=== PATIENT | female | born 1970 | race Caucasian/White ===

== ENCOUNTER 2019-12-14 04:25 | Emergency (ER) | payer MEDICAID, OTHER ==
[~2019-12-14] VITALS: Ht 152.4 cm; Wt 99.8 kg
[~2019-12-14 04:25] MED LIST: ALBU0.099 IH
[2019-12-14 04:33] VITALS: BP 118/95
--- NOTE | 2019-12-14 04:39 | NUR ---
PT AMBULATED TO BED 11 WITH STEADY GAIT. PT PROVIDED UA.
--- NOTE | 2019-12-14 04:40 | NUR ---
ERMD AT BEDSIDE.
[2019-12-14] MEDS ORDERED: IBUPROFEN 600 MG TAB PO ONE (04:45)
[2019-12-14] MEDS ORDERED: HYDROcodone/APAP 10/325 MG 1 TAB TAB PO ONE (04:45)
--- NOTE | 2019-12-14 04:48 | NUR ---
49 Y/O FEMALE PRESENTED TO ED C/O RIGHT FLANK PAIN X 1 WEEK , SHARP , INTERMITTENT PAIN 10/10. PT DENIES TRAUMA AND STATES IT WAS A SUDDEN PAIN. PT DENIES N/V/D/FEVER/BODY ACHES/SOB/CHEST PAIN/DYSURIA. PT STATES SHE HAS BEEN TAKING IBUPROFEN W/ NO RELIEF. PT STATES THIS PAIN IS WORSE THAN WHEN SHE HAD GALLSTONES. PT C/O OF PAIN /TENDERNESS OF RIGHT FLANK UPON PALPATION. PT A/O X4 , RR EVEN AND UNLABORED. PT RESTING IN BED , LOCKED AND IN LOWEST POSITION, HOB ELEVATED, SIDE RAIL X1. PMH: ASTHMA, GALLSTONES NKA
--- NOTE | 2019-12-14 05:10 | NUR ---
LABS AND URINE SAMPLE COLLECTED AND WALKED TO LAB.
--- NOTE | 2019-12-14 05:13 | NUR ---
PT TAKEN TO CT VIA W/C
--- NOTE | 2019-12-14 05:21 | NUR ---
PT RETURN FROM CT
--- NOTE | 2019-12-14 05:28 | NUR ---
PT RATES PAIN 5/10 AFTER MEDICATION ADMINISTRATION. PT STATES "THE MEDICATION HELPED A LOT WITH THE PAIN."
[2019-12-14 06:00] LABS: BASOPHILS % (AUTO) 0.6 % (0.0-2.0); EOSINOPHILS # (AUTO) 0.2 K/uL (0-0.4); EOSINOPHILS % (AUTO) 3.4 % (0.0-4.0); HEMATOCRIT 37.2 % (36-48); HEMOGLOBIN 11.9 g/dL (12.0-16.0); LYMPHOCYTES # (AUTO) 1.6 K/uL (2.5-16.5); LYMPHOCYTES % (AUTO) 28.1 % (20.5-51.1); MEAN CORPUSCULAR HEMOGLOBIN 28 pg (27-31); MEAN CORPUSCULAR HGB CONC 32 g/dL (33-37); MEAN CORPUSCULAR VOLUME 86.7 fL (80-94); MONOCYTES # (AUTO) 0.4 K/uL (0.8-1.0); MONOCYTES % (AUTO) 7.3 % (1.7-9.3); NEUTROPHILS # (AUTO) 3.4 K/uL (1.8-7.7); NEUTROPHILS % (AUTO) 60.6 % (42.2-75.2); PLATELET COUNT (AUTO) 284 K/uL (140-450); WHITE BLOOD COUNT (AUTO) 5.7 K/uL (4.8-10.8)
[2019-12-14 06:16] LABS: APPEARANCE,URINE CLEAR (CLEAR); BILIRUBIN,URINE 1+ (NEGATIVE); BLOOD, URINE 1+ (NEGATIVE); LEUKOCYTE ESTERASE ,URINE NEGATIVE (NEGATIVE); NITRITE, URINE NEGATIVE (NEGATIVE); UGLUCOSE NEGATIVE (NEGATIVE)
--- NOTE | 2019-12-14 06:17 | NUR ---
PT SLEEPING IN BED, LOCKED AND IN LOWEST POSITION, VISIBLE RISE AND FALL OF CHEST, AROUSABLE TO VERBAL STIMULATION, HOB ELEVATED , SIDE RAIL X1. RR EVEN AND UNLABORED, VSS.
[2019-12-14 06:20] LABS: ANION GAP 11.8 (8-16); CARBON DIOXIDE 28.9 mmol/L (21-32); CREATININE 0.9 mg/dL (0.6-1.3); POTASSIUM 3.7 mmol/L (3.5-5.1); TOTAL BILIRUBIN 0.3 mg/dL (0.0-1.0)
[2019-12-14 06:21] LABS: COLOR,URINE YELLOW (YELLOW)
[2019-12-14 06:22] LABS: RBC,URINE NONE SEEN /HPF (0-5); WBC,URINE NONE SEEN /HPF (0-5)
--- NOTE | 2019-12-14 06:50 | NUR ---
DR FELICIANO AT BEDSIDE FOR RE EVALUATION.
[2019-12-14 07:00] VITALS: BP 121/87
--- NOTE | 2019-12-14 07:00 | NUR ---
Patient discharged with v/s stable. Written and verbal after care instructions given and explained. Patient alert, oriented and verbalized understanding of instructions. Ambulatory with steady gait. All questions addressed prior to discharge. ID band removed. Patient advised to follow up with PMD. Rx of IBUPROFEN AND NORCO given. Patient educated on indication of medication including possible reaction and side effects. Opportunity to ask questions provided and answered. Pt stated she will be receiving a ride from her friend.
== END 2019-12-14 07:00 | disposition home or self-care (01) ==
LOC: MED 04:25
DX: R10.9 Unspecified abdominal pain (principal); J45.909 Unspecified asthma, uncomplicated; Z79.899 Other long term (current) drug therapy
CPT/HCPCS: 36415; 80053; 81001; 85025; 99284

== ENCOUNTER 2020-02-25 00:30 | Emergency (ER) | payer MEDICAID ==
[~2020-02-25] VITALS: Ht 157.5 cm; Wt 91.2 kg
[2020-02-25 00:37] VITALS: BP 126/79
[2020-02-25] MEDS ORDERED: KETOROLAC 60 MG/2 ML VIAL IM ONE (01:15)
[2020-02-25 01:31] VITALS: BP 126/79
== END 2020-02-25 01:31 | disposition home or self-care (01) ==
LOC: MED 00:30
DX: S81.852A Open bite, left lower leg, initial encounter (principal); J45.909 Unspecified asthma, uncomplicated; F17.210 Nicotine dependence, cigarettes, uncomplicated; W54.0XXA Bitten by dog, initial encounter; Y93.89 Activity, other specified; Y92.89 Other specified places as the place of occurrence of the external cause; Y99.8 Other external cause status
CPT/HCPCS: 90471; 90715; 96372; 99284; J1885

== ENCOUNTER 2020-03-20 03:47 | Emergency (ER) | payer MEDICAID ==
[~2020-03-20] VITALS: Ht 157.5 cm; Wt 90.7 kg
[2020-03-20 03:50] VITALS: BP 108/71
[2020-03-20] MEDS ORDERED: KETOROLAC 60 MG/2 ML VIAL IM ONE (04:15)
[2020-03-20 04:42] VITALS: BP 108/71
== END 2020-03-20 04:42 | disposition home or self-care (01) ==
LOC: MED 03:47
DX: S80.12XA Contusion of left lower leg, initial encounter (principal); J45.909 Unspecified asthma, uncomplicated; F17.200 Nicotine dependence, unspecified, uncomplicated; Z79.899 Other long term (current) drug therapy; W22.8XXA Striking against or struck by other objects, initial encounter; Y93.89 Activity, other specified; Y92.89 Other specified places as the place of occurrence of the external cause; Y99.8 Other external cause status
CPT/HCPCS: 73590; 96372; 99283; J1885; Q0092

== ENCOUNTER 2021-01-16 17:50 | Emergency (ER) | payer MEDICAID ==
[~2021-01-16] VITALS: Ht 157.5 cm; Wt 90.7 kg
[2021-01-16 18:02] VITALS: BP 125/85
--- NOTE | 2021-01-16 18:41 | NUR ---
59 YEAR OLD FEMALE COMPLAINS OF BILATERAL LEG PAIN X LAST NIGHT. PT DENIES SOB, DENIES HEADACHE. PT DENIES N/V/D. PT AOX4, BREATHING EVEN AND UNLABORED, SKIN WARM AND DRY. BED IN LOWEST POSITION, LOCKED, BED RAIL UPX1. PMH - ASTHMA, C SECTION, GB REMOVAL, HERNIAL SURGERY ALLERGIES - NKA
[2021-01-16 18:50] VITALS: BP 125/85
--- NOTE | 2021-01-16 18:50 | NUR ---
PT LEFT WITHOUT DISCHARGE PAPERWORK. ERMD AWARE
== END 2021-01-16 18:50 | disposition home or self-care (01) ==
LOC: MED 17:50
DX: R60.0 Localized edema (principal); M79.604 Pain in right leg; M79.605 Pain in left leg
CPT/HCPCS: 81002; 99282

== ENCOUNTER 2021-04-16 11:14 | Emergency (ER) | payer MEDICAID ==
[~2021-04-16] VITALS: Ht 157.5 cm; Wt 95.3 kg
[2021-04-16 11:21] VITALS: BP 145/102
[2021-04-16 12:18] LABS: BASOPHILS % (AUTO) 0.5 % (0.0-2.0); EOSINOPHILS # (AUTO) 0.2 K/uL (0-0.4); EOSINOPHILS % (AUTO) 3.9 % (0.0-4.0); HEMATOCRIT 37.6 % (36-48); HEMOGLOBIN 12.4 g/dL (12.0-16.0); LYMPHOCYTES # (AUTO) 1.7 K/uL (2.5-16.5); MEAN CORPUSCULAR HEMOGLOBIN 28 pg (27-31); MEAN CORPUSCULAR HGB CONC 33 g/dL (33-37); MONOCYTES # (AUTO) 0.3 K/uL (0.8-1.0); MONOCYTES % (AUTO) 6.6 % (1.7-9.3); NEUTROPHILS # (AUTO) 2.2 K/uL (1.8-7.7); PLATELET COUNT (AUTO) 289 K/uL (140-450); RED BLOOD CELL COUNT(AUTO) 4.37 MIL/uL (4.20-5.40); RED CELL DISTRIBUTION WIDTH 14.1 % (11.6-13.7); WHITE BLOOD COUNT (AUTO) 4.5 K/uL (4.8-10.8)
[2021-04-16 12:34] LABS: ANION GAP 10.7 (8-16); CARBON DIOXIDE 30.2 mmol/L (21-32); CREATININE 0.8 mg/dL (0.6-1.3); POTASSIUM 3.9 mmol/L (3.5-5.1)
[2021-04-16 12:48] LABS: ALBUMIN 2.9 g/dL (3.4-5.0); TOTAL BILIRUBIN 0.4 mg/dL (0.0-1.0)
[2021-04-16] MEDS ORDERED: FURO40TA9 PO (13:06)
[2021-04-16 13:16] VITALS: BP 148/98
== END 2021-04-16 13:16 | disposition home or self-care (01) ==
LOC: MED 11:14
DX: R06.00 Dyspnea, unspecified (principal); R22.43 Localized swelling, mass and lump, lower limb, bilateral; Z20.822 Contact with and (suspected) exposure to COVID-19; J45.909 Unspecified asthma, uncomplicated; Z79.899 Other long term (current) drug therapy; Z79.51 Long term (current) use of inhaled steroids
CPT/HCPCS: 36415; 71045; 80053; 83880; 84443; 85025; 87426; 93005; 99285; Q0092